=== PATIENT | male | born 1955 | race Asian ===

== ENCOUNTER 2018-12-30 14:24 | Emergency (ER) | payer OTHER ==
[~2018-12-30] VITALS: Ht 165.1 cm; Wt 72.7 kg
[2018-12-30] MEDS ORDERED: AMLO-511 PO (14:37)
[2018-12-30] MEDS ORDERED: LOSA50TA64 PO (14:37)
[2018-12-30] MEDS ORDERED: SODIUM CHLORIDE 0.9% 1,000 ML IV ONE (14:58)
[2018-12-30] MEDS ORDERED: METOCLOPRAMIDE HCL 5 MG/ML 2 ML VIAL IVP ONE (15:00)
[2018-12-30] MEDS ORDERED: DiphenhydrAMINE HCL 50 MG/ML VIAL IVP ONE (15:00)
[2018-12-30 17:30] VITALS: BP 141/87
== END 2018-12-30 17:33 | disposition home or self-care (01) ==
LOC: EMS 14:27
DX: R51 Headache (principal); R42 Dizziness and giddiness; F41.9 Anxiety disorder, unspecified; I10 Essential (primary) hypertension; Z79.899 Other long term (current) drug therapy
CPT/HCPCS: 96361; 96374; 96375; 99283; J1200; J2765; J7030

== ENCOUNTER → 2020-04-05 | Outpatient (CLI) | payer MEDICARE ==
[~2020-04-05] MED LIST: AMLO-257 PO; LOSA50TA37 PO
== END | disposition home or self-care (01) ==
LOC: RADPV 08:44
PROVIDERS: ATTEND Internal Medicine Cardiovascular Disease
DX: I70.0 Atherosclerosis of aorta (principal); J18.9 Pneumonia, unspecified organism
CPT/HCPCS: 71046; 71046-TC

== ENCOUNTER 2022-01-30 01:12 | Emergency (ER) | payer MEDICARE, OTHER ==
[~2022-01-30] VITALS: Ht 163.8 cm; Wt 72.7 kg
[~2022-01-30 01:12] MED LIST changes: +ATOR40TA71 PO; +CIPR250T6 PO; +LOSA-382 PO; -LOSA50TA37 PO; +METO25XL PO; +METR500 PO
[2022-01-30] MEDS ORDERED: ACETAMINOPHEN 500 MG TABLET PO ONE (02:45)
[2022-01-30 03:00] VITALS: BP 148/80
== END 2022-01-30 03:22 | disposition home or self-care (01) ==
LOC: EMS 01:19
DX: M54.9 Dorsalgia, unspecified (principal); E78.00 Pure hypercholesterolemia, unspecified; I10 Essential (primary) hypertension
CPT/HCPCS: 99282; Z7502; Z7610